=== PATIENT | female | born 1960 | race Caucasian/White ===

== ENCOUNTER → 2020-12-18 | Outpatient (CLI) | payer MEDICARE | LOC: KOH-I 13:00 | DX: Z13.820 Encounter for screening for osteoporosis (principal); Z79.83 Long term (current) use of bisphosphonates | CPT/HCPCS: 77080 ==

== ENCOUNTER → 2021-04-24 | Outpatient (CLI) | payer MEDICARE | LOC: KOH-I 15:00 | DX: R91.1 Solitary pulmonary nodule (principal) | CPT/HCPCS: 71250 ==

== ENCOUNTER → 2021-07-31 | Outpatient (CLI) | payer MEDICARE | LOC: KOH-I 13:48 | DX: R19.5 Other fecal abnormalities (principal); N20.0 Calculus of kidney | CPT/HCPCS: 74019 ==

== ENCOUNTER → 2021-08-11 | Outpatient (CLI) | payer MEDICARE | LOC: KOH-I 08:22 | DX: R11.0 Nausea (principal) | CPT/HCPCS: 76705 ==